=== PATIENT | male | born 1955 | race Caucasian/White ===

== ENCOUNTER → 2018-10-15 10:37 | Outpatient (CLI) | payer MEDICAID ==
--- NOTE | ~2018-10-15 | ST ---
PATIENT:SHANICE PATEL MEDICAL RECORD: [id number] SEX: M LOCATION:[facility] ORDER #: ADMISSION DATE: 10/15/18 AGE OF PATIENT: 63 REFERRING PHYSICIAN: INTERPRETING PHYSICIAN: CHRISTELLE BROWN MD DATE OF SERVICE: 10/15/2018 PROCEDURE: Nuclear stress test. INDICATION: Angina, abnormal ECG, hypertension, shortness of breath, diabetes. DESCRIPTION: The patient was exercised on standard Lexiscan protocol with 27 mCi of sestamibi injected at peak stress. Rest images were done previously with 9 mCi. FINDINGS: Gated SPECT reveals a preserved ejection fraction at 62% with good wall motion and thickening and brightening throughout all segments. SPECT imaging Cardiolite was used as myocardial fusion agent. There is reversibility inferiorly that includes the basal, mid and apical inferior segments. The degree of reversibility is moderate. The amount of myocardial involved is moderate. OVERALL IMPRESSION: 1. This is an abnormal nuclear stress test with reversible changes inferiorly. 2. Gated SPECT reveals preserved ejection fraction of greater than 60%. In this patient with ongoing symptomatology, the current scan does suggest the presence of hemodynamically significant coronary artery disease. We would proceed with coronary angiography as followup study. TRANSINT:[id number] Voice Confirmation ID: [id number] DOCUMENT ID: [id number] CHRISTELLE BROWN MD CC: [id number] DICTATION DATE: 10/16/18 1614 MARKETING SUPPORT SPECIALIST: 10/17/18 0935 DEP CLI 10/15/18 [facility] [address] [place] [address]
== END | disposition home or self-care (01) ==
LOC: D.HCCARDIO 10:37
PROVIDERS: ATTEND Internal Medicine Interventional Cardiology
DX: I20.9 Angina pectoris, unspecified (principal); E11.9 Type 2 diabetes mellitus without complications; I48.91 Unspecified atrial fibrillation; I10 Essential (primary) hypertension; R06.09 Other forms of dyspnea; E78.5 Hyperlipidemia, unspecified

== ENCOUNTER 2018-11-26 10:26 | Outpatient (CLI) | payer MEDICAID ==
--- NOTE | ~2018-11-26 | HEMODYNAMI ---
PATIENT:SHANICE PATEL MEDICAL RECORD: [id number] : 57 LOCATION:BLANE ADMISSION DATE: 11/26/18 Generatedon:11/26/201813:29 Patient name: SHANICE PATEL Patient #: [id number] SSN: : 1955 Date of study: 11/26/2018 Page: Of Hemodynamic Procedure Report Patient Data Patient Demographics Procedure consent was obtained First Name: SHANICE Gender: Male Last Name: AMANDA : 1955 Patient #: [id number] Age: 63 year(s) Race: Unknown Additional ID: [id number] Contact details [address]: [address] [place] [address] State: [place] City: [place] Zip code: [address] Past Medical History Allergies Allergen Reaction Date Comments Reported Other allergy 11/26/2018 PCN Admission Admission Data Admission Date: 11/26/2018 Admission Time: 10:26 Lab Results Lab Result Date: 11/26/2018 Lab Result Time: 10:50 Biochemistry Name Units Result Min Max BUN mg/dl 23 --(----)-* 7 18 Creatinine mg/dl 0.8 --(-*--)-- 0.6 1.3 CBC Name Units Result Min Max Hematocrit % 39.2 -*(----)-- 42 54 Hemoglobin g/dl 13.1 -*(----)-- 13.5 17.5 Procedure Procedure Types Cath Procedure Diagnostic Procedure LHC LH w/Coronaries PCI Procedure Coronary Stent Coronary Stent Initial Peripheral Cath Diagnostic Procedure Coach Wirer Peripheral Procedures Njxau-Yurucvt-Mxx-Off Procedure Description Procedure Date Procedure Date: 11/26/2018 Procedure Start Time: 13:05 Procedure End Time: 13:28 Procedure Staff Name Function Martin Sanford MD Performing Physician Vania Nelson RT Monitor Sri Banuelos RT Scrub Tarun Anna RN Nurse Procedure Data Cath Procedure Fluoroscopy Diagnostic fluoroscopy Total fluoroscopy Time: 4.1 time: 4.1 min min Diagnostic fluoroscopy Total fluoroscopy dose: dose: 1214 mGy 1214 mGy Contrast Material Contrast Material Type Amount (ml) Isovue 300 146 Entry Location Entry Primary Successful Side Size Upsize Upsize Entry Closure Succes sful Closure Location (Fr) 1 (Fr) 2 (Fr) Remarks Device Remarks Femoral Right 5 Fr 6 Fr Exoseal artery Short Estimated blood loss: 5 ml Diagnostic catheters Device Type Used For End Catheter Placement MULTIPACK JL 4.0 5Fr Left Coronary catheter Angiography MULTIPACK 3DRC 5Fr Right Coronary catheter Angiography MULTIPACK Pigtail 5 Fr LV Angiography catheter Procedure Complications No complications Procedure Medications Medication Administration Route Dosage 0.9% NaCl I.V. 100 ml/hr Oxygen etCO2 Nasal cannula 2 l/min Heparin Flush Bag added to field 2 bags (1000units/500ml NS) Lidocaine 2% added to field 20 Versed I.V. 1 mg Fentanyl I.V. 50 mcg Versed I.V. 0.5 mg Fentanyl I.V. 25 mcg Heparin Bolus I.V. 5000 units Integrilin (Bolus I.V. 10.2 ml 2mg/ml) Integrilin (Bolus wasted 9.8 ml 2mg/ml) Plavix P.O. 600 mg Hemodynamics Rest HGB: 13.1 (g/dl) Heart Rate: 60 (bpm) Pressure Samples Time Site Value (mmHg) Purpose Heart Use Rate(bpm) 13:10 LV 111/-4,7 Snapshot 75 13:10 AO 143/81(107) Pullback 73 Gradients Valve Time Site Site 2 Mean SEP/DFP Peak To Heart Use 1 (mmHg) (sec/min) Peak Rate (mmHg) (bpm) Aortic 13:10 LV AO 42 47 73 143/81(107) Calculations Valve P-P Mean Valve Index Valve Source Name Gradient Area Flow (cm2) Aortic 42 42 Snapshots Pre Cath Intra NCS Post Cath Vital Signs Time Heart Resp SPO2 etCO2 NIBP (mmHg) Rhythm Pain Sedation Rate (ipm) (%) (mmHg) Status Level (bpm) 13:01:04 68 16 99 34.1 168/101(128) NSR 0 (11) 10(A) , No pain 13:05:14 60 15 98 40.8 155/96(118) NSR 0 (11) 10(A) , No pain 13:09:28 68 17 98 40.8 151/89(115) NSR 0 (11) 10(A) , No pain 13:13:48 51 15 98 41.6 147/89(109) NSR 0 (11) 9(A) , No pain 13:18:04 65 15 98 25.2 148/89(113) NSR 0 (11) 9(A) , No pain 13:22:16 71 20 97 24.4 140/89(109) NSR 0 (11) 10(A) , No pain 13:26:30 49 11 99 24.4 157/92(115) NSR 0 (11) 10(A) , No pain Medications Time Medication Route Dose Verified Delivered Reason Notes Effectiveness by by 13:00:25 0.9% NaCl I.V. 100 Tarun Tarun Per physician ml/hr Wilfrido Anna RN RN 13:00:37 Oxygen etCO2 2 Tarun Tarun for low 02 sats Nasal l/min Wilfrido Anna cannula RN RN 13:00:48 Heparin Flush added 2 Tarun Tarun used for Bag to bags Wilfrido Anna procedure (1000units/500ml RN RN NS) 13:00:58 Lidocaine 2% added 20ml Tarun Tarun for local to vial Wilfrido Anna anesthetic RN RN 13:04:47 Versed I.V. 1 mg Tarun Tarun for sedation Wilfrido Anna RN RN 13:04:57 Fentanyl I.V. 50 Tarun Tarun for sedation mcg Wilfrido Anna RN RN 13:06:42 Versed I.V. 0.5 Tarun Tarun for sedation mg Wilfrido Anna RN RN 13:06:48 Fentanyl I.V. 25 Tarun Tarun for sedation mcg Wilfrido Anna RN RN 13:18:20 Heparin Bolus I.V. 5000 Tarun Tarun for units Wilfrido Anna anticoagulation RN RN 13:18:39 Integrilin I.V. 10.2 Tarun Tarun for (Bolus 2mg/ml) ml Wilfrido Anna antiplatelet RN RN therapy 13:18:53 Integrilin wasted 9.8 Tarun Tarun to sharp's (Bolus 2mg/ml) ml Wilfrido Anna RN RN 13:28:27 Plavix P.O. 600 Tarun Tarun for mg Wilfrido Anna antiplatelet RN RN therapy Procedure Log Time Note 12:45:53 Diagnostic Cath Status : Elective 12:46:17 Sri Banuelos RT(R) sent for patient. Start room use. 12:46:18 Time tracking: Regular hours (M-F 7:00 - 5:00) 12:46:25 Plan of Care:Hemodynamics will remain stable., Cardiac rhythm will remain stable., Comfort level will be maintained., Respiratory function will remain adequate., Patient/ family verbilizes understanding of procedure., Procedure tolerated without complication., Recovers from procedure without complications.. 12:51:44 Patient received from Pre/Post Procedure Room to CCL 1 Alert and oriented. Tansferred to table in Supine position. 12:51:45 Warm blankets applied, and brian hugger turned on for patient comfort. 12:51:45 Correct patient and procedure confirmed by team. 12:51:47 Signed procedure consent form obtained from patient. 12:51:48 ECG and BP/O2 sat monitors applied to patient. 12:52:59 Pre-procedure instructions explained to patient. 12:53:00 Pre-op teaching completed and patient verbalized understanding. 12:53:01 Family in waiting room. 12:53:04 Patient NPO since Breakfast. 12:54:06 Patient allergic to Other allergyPCN 12:54:17 Is the patient allergic to Iodine/contrast media? No. 12:54:44 Patient diabetic? Yes. 12:54:44 If diabetic: On Metformin? Yes 12:54:46 If on Metformin: Last Dose? 11/26/2018 12:54:51 Is patient on blood thinner?No 12:54:54 Previous problem with sedation/anesthesia? No ? 12:54:55 Snore? Yes 12:54:56 Sleep apnea? Yes 12:54:57 Deviated septum? No 12:54:57 Opens mouth fully? Yes 12:54:58 Sticks out tongue? Yes 12:55:02 Airway obstruction? Yes COPD 12:55:06 Dentures? Yes IN TIGHT 12:55:13 Patient pain scale 0/10 ?. 12:55:22 IV patent on arrival in left forearm with 0.9% NaCl at [facility]. 12:55:46 Lab Result : BUN 23 mg/dl 12:55:46 Lab Result : Hemoglobin 13.1 g/dl 12::46 Lab Result : Creatinine 0.8 mg/dl 12::46 Lab Result : Hematocrit 39.2 % 12:55:48 Lab results completed and on chart. 12:55:51 Pre procedure: right dorsailis pedis pulse 2+ Normal; easily identifiable; not easily obliterated 12:55:54 Pre procedure: left dorsailis pedis pulse 2+ Normal; easily identifiable; not easily obliterated 12:55:57 Bilateral groins area was prepped with chlora-prep and draped in sterile fashion 12:55:58 Alarms reviewed by R. N. 12:55:58 Sharps counted by scrub and verified by R.N. 12:56:00 Use device set Femoral Dx 12:56:01 ACIST Syringe (97063) opened to sterile field. 12:56:01 Bag Decanter (2002S) opened to sterile field. 12:56:02 Medline Cath Pack ([id number]) opened to sterile field. 12:56:03 ACIST Hand Control (19570) opened to sterile field. 12:56:03 ACIST Manifold (80960) opened to sterile field. 12:56:04 Tegaderm 4 x 4 (1626W) opened to sterile field. 12:56:05 SHEATH 5FR Clare (BPO603) opened to sterile field. 12:56:06 DIAGNOSTIC Multipack 5Fr catheter set (CO3254) opened to sterile field. 12:56:06 DIAGNOSTIC WIRE .035 260cm J wire (163060) opened to sterile field. 12:59:56 Vital chart was started 12:59:59 Baseline sample Acquired. 13:00:25 0.9% NaCl 100 ml/hr I.V. was administered by Tarun Anna RN; Per physician; 13:00:37 Oxygen 2 l/min etCO2 Nasal cannula was administered by Tarun Anna RN; for low 02 sats; 13:00:48 Heparin Flush Bag (1000units/500ml NS) 2 bags added to field was administered by Tarun Anna RN; used for procedure; 13:00:58 Lidocaine 2% 20ml vial added to field was administered by Tarun Anna RN; for local anesthetic; 13:01:33 Physician arrived 13:01:34 --------ALL STOP TIME OUT------ 13:01:35 Final Timeout: patient, procedure, and site verified with staff and physician. All members of the team are in agreement. 13:01:38 Bilateral groins site verified by team. 13:01:41 Maximum allowable Isovue 300 dose 300ml. Physician notified. (300ml for normal creatinines. For patients with creatinine of 1.7 or higher multiply weight(kg) x 5 divided by creatinine.) 13:01:45 Fire Safety Assessment: A--An alcohol-based skin anteseptic being used preoperatively., C--Open oxygen or nitrous oxide is being used., D--An ESU, laser, or fiber-optic light is being used. 13:01:48 Physical assessment completed. ASA score P 2 - A patient with mild systemic disease as per Martin Sanford MD. 13:01:52 Sedation plan: IV Moderate Sedation Medication:Versed, Fentanyl 13:04:47 Versed 1 mg I.V. was administered by Tarun Anna RN; for sedation; 13::57 Fentanyl 50 mcg I.V. was administered by Tarun Anna RN; for sedation; ::57 Procedure started. 13::57 Full Disclosure recording started 13:05:25 Local anesthetic to right femoral artery with Lidocaine 2% by Martin Sanford MD.INITIAL ACCESS ONLY 13:06:36 A 5 Fr sheath was inserted into the Right Femoral artery 13:06:42 Versed 0.5 mg I.V. was administered by Tarun Anna RN; for sedation; 13:06:43 A MULTIPACK JL 4.0 5Fr catheter was advanced over the wire and used for Left Coronary Angiography. 13:06:48 Fentanyl 25 mcg I.V. was administered by Tarun Anna RN; for sedation; 13:07:01 LCA angiography performed. 13:07:07 Injector settings: Ml/sec: 3, Volume: 6, 13:08:09 Catheter removed. 13:08:45 A MULTIPACK 3DRC 5Fr catheter was advanced over the wire and used for Right Coronary Angiography. 13:09:06 RCA angiography performed. 13::09 Injector settings: Ml/sec: 3, Volume: 6, 13:09:20 Baseline sample Acquired. 13:09:44 Catheter removed. 13:09:51 A MULTIPACK Pigtail 5 Fr catheter was advanced over the wire and used for LV Angiography. 13:10:06 LV hemodynamics recorded. 13:10:07 LV gram done using PLASENCIA 13:10:10 Injector settings: Ml/sec: 5, Volume: 15, 13:10:18 EF : 50 % 13:11:10 Abdominal angiogram w/ runoff was performed. 13:12:52 Catheter removed. 13:13:28 Proceeding to intervention. 13:13:54 SHEATH 6FR Clare (YYY748) opened to sterile field. 13:13:55 INFLATOR Merit BasixCompak (OU8923) opened to sterile field. 13:13:55 WHISPER 300cm guide wire ([id number]) opened to sterile field. 13:16:41 GUIDE 6FR JL 4.0 catheter (EP1AI85) opened to sterile field. 13:16:54 Sheath upsized to a 6 Fr Short. 13:17:13 6 Fr JL 4 guide catheter was inserted over the wire 13:17:23 WHISPER wire advanced. 13:17:43 Wire advanced across lesion. 13:18:20 Heparin Bolus 5000 units I.V. was administered by Tarun Anna RN; for anticoagulation; 13:18:39 Integrilin (Bolus 2mg/ml) 10.2 ml I.V. was administered by Tarun Anna RN; for antiplatelet therapy; 13:18:53 Integrilin (Bolus 2mg/ml) 9.8 ml wasted was administered by Tarun Anna RN; to sharp's; 13:22:06 Place stent Inflation Number: 1 A ISMAEL OTW 3.0 x 18 stent ([id number]) was prepped and advanced across the Mid LAD. The stent was deployed at 14 TENISHA for 0:30 (min:sec). 13:22:45 Inflation number: 2 The stent balloon was then re-inflated across the Mid LAD to 6 TENISHA for 0:30 (min:sec). 13:25:32 Stent catheter was removed intact over wire. 13:25:32 Wire removed. 13:25:33 Guide catheter removed. 13:25:39 EXOSEAL 6Fr (EX600) opened to sterile field. 13:25:48 Sheath removed intact; hemostasis achieved with Exoseal to the Right Femoral artery. 13:25:50 Procedure ended.(Physican Out) 13:27:34 Fluoroscopy time 04.10 minutes. 13:27:38 Fluoroscopy dose: 1214 mGy 13:27:38 Flurop Dose total: 1214 13:27:50 Contrast amount:Isovue 300 146ml. 13:27:52 Sharps counted by scrub and verified by R.N. 13:27:54 Insertion/operative site no bleeding no hematoma. 13:27:56 Post-op/insertion site Right Femoral artery dressed using a 4 x 4 and Tegaderm. 13:27:59 Post right femoral artery:stable 13:28:01 Post Procedure Pulses reassessed and unchanged 13:28:03 Post procedure rhythm: unchanged. 13:28:06 Estimated blood loss: 5 ml 13:28:07 Post procedure instruction explained to patient.Patient verbalizes understanding. 13:28:08 Patient needs reinforcement of post procedure teaching. 13:28:27 Plavix 600 mg P.O. was administered by Tarun Anna RN; for antiplatelet therapy; 13:28:37 Procedure type changed to Cath procedure, Diagnostic procedure, LHC, LHC w/Coronaries, PCI procedure, Coronary Stent, Coronary Stent Initial, Peripheral Cath Diagnostic Procedure, Coach Wirer Peripheral Procedures, Ilmdm-Bfklsin-Xqt-Off 13::38 Procedure and supply charges have been captured, reviewed, submitted and are correct. 13:28:43 Procedure Complication : No complications 13:28:45 Vital chart was stopped 13:28:46 See physician's report for complete and final results. 13:28:48 Report given to Pre/Post Procedure Room. 13:28:51 Patient transfered to Pre/Post Procedure Room with Stretcher. 13:28:53 Procedure ended. 13:28:53 Full Disclosure recording stopped 13:29:04 ACC-PCI Only Patient was given prescriptions, or instructed by Martin Sanford MD to start/continue the following medications upon discharge: Plavix 13:29:05 End room use (Document Last) Intervention Summary Intervention Notes Time ActionType Lesion and Equipment Action# Pressure Duration Attributes Used 13:22:06 Place stent Mid LAD ISMAEL OTW 3.0 1 14 00:30 x 18 stent ([id number]) 13:22:45 Reinflate Mid LAD ISMAEL OTW 3.0 2 6 00:30 stent x 18 stent balloon ([id number]) Device Usage Item Name Manufacture Quantity Catalog Hospital Part Current Mini mal Lot# / Number Charge Number Stock Stock Serial# Code ACIST Syringe Acist 1 64966 078440 362455 220095 20 (29480) Medical Systems Inc Bag Decanter Microtek 1 2001S 462154 86520 912958 5 (2001S) Medical Inc. Medline Cath Medline 1 [id number] 441328 59025 677344 5 Pack ([id number]) ACIST Hand Acist 1 06189 170144 239291 757924 5 Control Medical (36860) Systems Inc ACIST Acist 1 91590 665313 032543 585881 5 Manifold Medical (10951) Systems Inc Tegaderm 4 x 3M 1 1626W 283470 242420 466349 5 4 (1626W) SHEATH 5FR Terumo 1 EML094 465894 739194 441113 5 Clare (EKB202) DIAGNOSTIC Cardinal 1 SH1520 408907 08402 497409 30 Multipack 5Fr Health catheter set (KE2856) DIAGNOSTIC St [place] 1 878219 414773 434100 047157 30 WIRE .035 260cm J wire (795704) MULTIPACK JL Cardinal 1 773548 5 4.0 5Fr Health catheter MULTIPACK Cardinal 1 602735 5 3DRC 5Fr Health catheter MULTIPACK Cardinal 1 512380 5 Pigtail 5 Fr Health catheter SHEATH 6FR Terumo 1 URI852 580161 321600 344977 40 Clare (WNL900) INFLATOR [facility] 1 GC1391 941287 344291 021176 15 [facility] BasixCompak (GJ0605) WHISPER 300cm Dickey 1 [id number] 119227 958629 751133 5 guide wire Vascular ([id number]) GUIDE 6FR JL Medtronic 1 [id number] 757251 55892 535997 1 4.0 catheter (LW6BW89) ISMAEL OTW 3.0 Medtronic 1 [id number] 518362 5041666 059718 5 [id number] x 18 stent ([id number]) EXOSEAL 6Fr Cardinal 1 EX600 722972 252832 820378 10 (EX600) Health Signature Audit [place] Stage Time Signature Unsigned Intra-Procedure 11/26/2018 Vania Nelson 1:29:47 PM RT(R) Signatures Monitor : Vania Nelson RT Signature : Date : Time : [address] [place] [address]
[2018-11-26] MEDS ORDERED: GLUCOPHAGE500 MG PO (10:42)
[2018-11-26] MEDS ORDERED: SINGULAIR10 MG PO (10:42)
[2018-11-26] MEDS ORDERED: XANAX1 MG PO (10:42)
[2018-11-26] MEDS ORDERED: MOBIC7.5 MG PO (10:43)
[2018-11-26 10:55] VITALS: BP 162/91; BMI 37.0
[2018-11-26 11:09] LABS: BASOPHILS 0 % (0-2); EOSINOPHILS 3.7 % (0-7); HEMATOCRIT 39.2 % (42.0-54.0); HEMOGLOBIN 13.1 g/dL (13.5-17.5); IMMATURE GRANULOCYTES 0.3 % (0-5); LYMPHOCYTES 19.9 % (15-50); MCH 28.9 pg (26.0-34.0); MCHC 33.4 g/dL (31.0-37.0); MCV 86.3 fL (80.0-100.0); MEAN PLATELET VOLUME 10.3 fL (7.4-10.4); MONOCYTES 6.4 % (2-11); NEUTROPHILS 69.7 % (40-80); PLATELET COUNT 186 10x3/uL (130-400); RBC 4.54 10x6/uL (4.20-6.10); RDW 13.7 % (11.5-14.5); WBC 5.9 10x3/uL (4.8-10.8)
[2018-11-26 11:18] LABS: CALC OSMOLALITY 283 mosm/kg (275-300); CALCIUM 8.9 mg/dL (8.5-10.1); CHLORIDE - SERUM 104 mmol/L (98-107); CREATININE - SERUM 0.8 mg/dL (0.6-1.3); GLUCOSE 162 mg/dL (74-106); POTASSIUM - SERUM 4.1 mmol/L (3.5-5.1); SODIUM 138 mmol/L (136-145); UREA NITROGEN 23 mg/dL (7-18); eGFR NON AFRICAN AMERICAN > 90 mL/min (90-120)
[2018-11-26] MEDS ORDERED: PLAVIX75 MG PO (13:38)
--- NOTE | 2018-11-26 13:55 | NUR ---
2L NC, NO RESP DISTRESS. RIGHT GROIN 6F EXOSEAL CDI, HEMATOMA NOTED TO SITE. FEMSTOP IN PALCE @ 116. NO C/O PAIN OR NAUSEA. VSS. CALL LIGHT WITHIN REACH.
--- NOTE | 2018-11-26 14:30 | NUR ---
C/O NAUSEA. ZOFRAN GIVEN PER ORDERS. SEE MAR. FEMSTOP PRESSURE DECREASED BY 25 WITH NO BLEEDING NOTED. VSS. WILL CONTINUE TO MONITOR.
--- NOTE | 2018-11-26 14:55 | NUR ---
FEMSTOP PRESSURE DECREASED BY 30 WITH NO BLEEDING NOTED. VSS. NO NEEDS VOICED. CALL LIGHT WITHIN REACH.
--- NOTE | 2018-11-26 15:18 | NUR ---
FEMSTOP PRESSURE DECREASED BY 30 WITH NO BLEEDING NOTED.
--- NOTE | 2018-11-26 15:38 | NUR ---
FEMSTOP PRESSURE DECREASED BY 30 WITH NO BLEEDING NOTED. VSS.
--- NOTE | 2018-11-26 15:55 | NUR ---
REMAINING FEMSTOP PRESSURE REMOVED AND DRESSING PLACED TO SITE WITH NO BLEEDING NOTED. VSS. WILL CONTINUE TO MONITOR.
--- NOTE | 2018-11-26 16:35 | NUR ---
HOB ELEVATED 30 DEGREES. RIGHT GROIN 6F EXOSEAL CDI, NO BLEEDING NOTED. SIPPING ON DRINK AND EATING SANDWICH WITH NO C/O NAUSEA. VSS. WILL CONTINUE TO MONITOR CLOSELY.
--- NOTE | 2018-11-26 17:08 | NUR ---
LEFT PIV D/C'D WITH CATHETER INTACT, BAND AID TO SITE. RIGHT GROIN 6F EXOSEAL CDI, NO BLEEDING NOTED. UP TO BEDSIDE TO GET DRESSED. AMBULATED TO RESTROOM TO VOID.
--- NOTE | 2018-11-26 17:20 | NUR ---
DISCHARGE INSTRUCTIONS ALONG WITH PLAVIX PRESCRIPTION GIVEN TO PT AND FAMILY. BOTH VERBALIZED UNDERSTANDING.
--- NOTE | 2018-11-26 17:30 | NUR ---
TAKEN OUT VIA WHEELCHAIR BY CATH STRIPER MACHINE. LEFT FACILITY WITH FAMILY AND ALL PERSONAL BELONGINGS.
--- NOTE | 2018-12-01 08:49 | OP ---
PATIENT NAME: SHANICE PATEL MEDICAL RECORD: [id number] :57 LOCATION:D.CAT ADMISSION DATE: SURGEON: DARRYL SHULTZ MD DATE OF OPERATION: 11/26/2018 PROCEDURE: Catheterization, AFRO, PTCA stent to the right femoral artery approach. CATHETERS: A 5-Solomon Islander sheath, 5/4 left and right Yael, 5/4 pig. The procedure was well tolerated. The patient returned to the mcarthur, sheath removed and adequate hemostasis. ExoSeal device was placed. FINDINGS: Left ventriculography in 30-degree PLASENCIA view. Normal wall motion and normal systolic function. CORONARY ANATOMY: LEFT MAIN: Left main is free of disease. LAD: Mid portion has about 90% stenosis after trifurcation of 2 diagonals in the LAD. CIRCUMFLEX: Has ostial stenosis of 80%. RIGHT CORONARY ARTERY: Dominant artery, gives rise to PDA, free of disease. The pigtail catheter was drawn to the level of the renal arteries and AFRO was performed. Abdominal aorta shows no evidence of dissection. No evidence of aneurysm. RIGHT ARTERIAL SYSTEM: Right iliacs, common internal and external iliac are tortuous, but without significant disease. RIGHT FEMORAL SYSTEM: The right deep common femoral shows no significant disease. The distal superficial femoral has some wall disease, no more than 20% with good 2-vessel runoff distally. LEFT ILIAC: Left iliac, including common internal and external again tortuous, but with no significant stenosis. The superficial system deep common, no significant disease. Again, some wall disease in the mid portion with calcification, but no flow obstructive stenosis, good 2-vessel runoff distally. IMPRESSION AND PLAN: Intervention LAD momentarily. DESCRIPTION OF PROCEDURE: A 5-Solomon Islander sheath was exchanged for a 6-Sol[place] Islander sheath. A JL4 guiding catheter provided good guide catheter support followed by 300 cm Whisper wire was placed across the tightly occluded LAD down his portion of the vessel. Stent deployed was a 3.0 x 18 mm [place] drug-eluting stent up to 14 atmospheres for 45 seconds. Final angiography shows excellent resolution 80% to 90% diffuse stenosis, no significant residual. YANA flow was 3 throughout the procedure. Sheath was closed with ExoSeal device. TRANSINT:[id number] Voice Confirmation ID: [id number] DOCUMENT ID: [id number] OPERATIVE REPORT [id number] SHANICE PATEL DARRYL SHULTZ MD at 0849 CC: [id number] DICTATION DATE: 11/26/18 1333 MANUFACTURING SPECIALIST: 11/26/18 190 DEP CLI 11/26/18 [place] [id number] [place] [address]
== END 2018-11-26 17:30 | disposition home or self-care (01) ==
LOC: D.CATH 10:26
PROVIDERS: ATTEND Internal Medicine Interventional Cardiology
DX: I25.119 Atherosclerotic heart disease of native coronary artery with unspecified angina pectoris (principal); Z01.812 Encounter for preprocedural laboratory examination

== ENCOUNTER 2018-12-17 11:57 | Outpatient (CLI) | payer MEDICAID ==
[~2018-12-17] VITALS: Ht 176.5 cm; Wt 113.6 kg
--- NOTE | ~2018-12-17 | HEMODYNAMI ---
PATIENT:SHANICE PATEL MEDICAL RECORD: [id number] : 57 LOCATION:BLANE ADMISSION DATE: 12/17/18 Generatedon:12/17/201815:38 Patient name: SHANICE PATEL Patient #: [id number] SSN: : 1955 Date of study: 12/17/2018 Page: Of Hemodynamic Procedure Report Patient Data Patient Demographics Procedure consent was obtained First Name: SHANICE Gender: Male Last Name: AMANDA : 1955 [facility] Initial: NURA Age: 63 year(s) Patient #: [id number] Race: Unknown Additional ID: [id number] Contact details Address: [address] [place] [address] State: [place] City: [place] Zip code: [address] Past Medical History Allergies Allergen Reaction Date Comments Reported Other allergy 11/26/2018 PCN Penicillins 12/17/2018 Admission Admission Data Admission Date: 12/17/2018 Admission Time: 11:57 Admit Source: Other Procedure Procedure Types Cath Procedure PCI Procedure Coronary Stent Coronary Stent Initial Procedure Description Procedure Date Procedure Date: 12/17/2018 Procedure Start Time: 15:22 Procedure End Time: 15:37 Procedure Staff Name Function Martin Sanford MD Performing Physician Darby Reaves RT Monitor Nguyễn Hayden RT Scrub Lenny Berg RN Nurse Procedure Data Cath Procedure Fluoroscopy Diagnostic fluoroscopy Total fluoroscopy Time: 2.7 time: 2.7 min min Diagnostic fluoroscopy Total fluoroscopy dose: 254 dose: 254 mGy mGy Contrast Material Contrast Material Type Amount (ml) Isovue 300 64 Entry Location Entry Primary Successful Side Size Upsize Upsize Entry Closure Forrester ccessful Closure Location (Fr) 1 (Fr) 2 (Fr) Remarks Device Remarks Radial Right 6 Fr Mechanical artery Short Compression Estimated blood loss: 5 ml Procedure Complications No complications Procedure Medications Medication Administration Route Dosage Oxygen etCO2 Nasal cannula 2 l/min Lidocaine 2% added to field 20 Heparin Flush Bag added to field 2 bags (1000units/500ml NS) 0.9% NaCl I.V. 100 ml/hr Radial Cocktail added to field 1 syringe (Verapamil 2mg/Nitro 400mcg/Heparin 1500units) Versed I.V. 2 mg Fentanyl I.V. 100 mcg Versed I.V. 2 mg Fentanyl I.V. 50 mcg Heparin Bolus I.V. 4000 units Hemodynamics Rest Heart Rate: 75 (bpm) Snapshots Pre Cath Intra NCS Post Cath Vital Signs Time Heart Resp SPO2 etCO2 NIBP (mmHg) Rhythm Pain Sedation Rate (ipm) (%) (mmHg) Status Level (bpm) 15:02:48 75 14 97 0 149/98(120) NSR 0 (11) 10(A) , No pain 15:07:04 58 26 98 0 155/95(142) NSR 0 (11) 10(A) , No pain 15:11:20 76 22 98 0 154/102(128) NSR 0 (11) 10(A) , No pain 15:15:36 76 19 97 0 140/94(126) NSR 0 (11) 10(A) , No pain 15:19:46 75 16 98 0 137/89(109) NSR 0 (11) 10(A) , No pain 15:23:54 75 12 97 0 137/94(109) NSR 0 (11) 9(A) , No pain 15:28:03 78 11 95 0 127/82(106) NSR 0 (11) 9(A) , No pain 15:32:09 75 12 94 0 138/89(116) NSR 0 (11) 9(A) , No pain 15:36:19 72 12 95 0 138/86(113) NSR 0 (11) 9(A) , No pain Medications Time Medication Route Dose Verified Delivered Reason Not es Effectiveness by by 15:10:59 Oxygen etCO2 2 l/min Martin Galvez used for Nasal St Jonathon Berg RN procedure cannula 15:11:07 Lidocaine 2% added 20ml Martin Salazar for local to vial [facility] anesthetic field MD ESPINOZA 15:11:14 Heparin Flush added 2 bags Martin Salazar used for Bag to [facility] procedure (1000units/500ml field MD ESPINOZA NS) 15:11:23 0.9% NaCl I.V. 100 Martin Lalaie Per physician ml/hr St Jonathon Berg RN, MD 15:11:36 Radial Cocktail added 1 Martin Salazar for (Verapamil to syringe [place] [facility] vasodilation 2mg/Nitro field MD ESPINOZA 400mcg/Heparin 1500units) 15:19:17 Versed I.V. 2 mg Martin Reevesie for sedation St Jonathon Berg RN, MD 15:19:27 Fentanyl I.V. 100 mcg Martin Reevesie for sedation St Jonathon Berg RN, MD 15:27:22 Versed I.V. 2 mg Martin Reevesie for sedation St Jonathon Berg RN, MD 15:27:26 Fentanyl I.V. 50 mcg Martin Galvez for sedation St Jonathon Berg RN, MD 15:28:24 Heparin Bolus I.V. 4000 Martin Galvez for bhanu ified units St Jonathon Berg RN anticoagulation with dr MD bello Procedure Log Time Note 14:23:50 Informed consent obtained and on chart 14:23:53 Admit Source: Other 14:24:06 Diagnostic Cath status Elective 14:24:07 Time tracking: Regular hours (M-F 7:00 - 5:00) 14:24:11 Plan of Care:Hemodynamics will remain stable., Cardiac rhythm will remain stable., Comfort level will be maintained., Respiratory function will remain adequate., Patient/ family verbilizes understanding of procedure., Procedure tolerated without complication., Recovers from procedure without complications.. 14:24:21 H&P Date Dictated: 12/17/2018 Within 30 days and on chart., H&P Addendum completed by physician on day of procedure. (MUST COMPLETE FOR ALL OUTPATIENTS). 14:54:21 Lenny Breg RN sent for patient. Start room use. 14:56:01 Patient received from Pre/Post Procedure Room to CCL 3 Alert and oriented. Tansferred to table in Supine position. 14:56:02 Warm blankets applied, and brian hugger turned on for patient comfort. 14:56:02 Correct patient and procedure confirmed by team. 14:56:03 ECG and BP/O2 sat monitors applied to patient. 14:56:04 Full Disclosure recording started 15:01:44 Vital chart was started 15:01:56 Baseline sample Acquired. 15:02:04 Rhythm: sinus rhythm 15:02:16 Pre-procedure instructions explained to patient. 15:02:28 Pre-op teaching completed and patient verbalized understanding. 15:02:31 Family in waiting room. 15:02:34 Patient NPO since Midnight. 15:03:04 Patient allergic to Penicillins 15:03:10 Is the patient allergic to Iodine/contrast media? No. 15:03:15 Is patient on blood thinner?Yes 15:03:21 ACC The patient was administered the following blood thiners within the last 24 hours: ACCPlavix 15:03:40 ----Pre-sedation anethsthesia assessment.---- 15:03:46 Patient diabetic? Yes. 15:03:48 If diabetic: On Metformin? Yes 15:03:56 If on Metformin: Last Dose? 12/15/2018 15:04:11 Previous problem with sedation/anesthesia? No ? 15:04:16 Snore? Yes 15:04:18 Sleep apnea? No 15:04:21 Deviated septum? No 15:04:24 Opens mouth fully? Yes 15:04:27 Sticks out tongue? Yes 15:04:49 Airway obstruction? Yes copd 15:04:56 Dentures? No ? 15:08:34 Pre procedure: right dorsailis pedis pulse 2+ Normal; easily identifiable; not easily obliterated 15:08:35 Modified Wesly's test Ulnar < 7 seconds 15:08:37 Patient pain scale 0/10 ?. 15:08:46 IV patent on arrival in left forearm with 0.9% NaCl at O. 15:08:48 Lab results completed and on chart. 15:08:52 Right Radial & Right Groin area was prepped with chlora-prep and draped in sterile fashion 15:08:53 Alarms reviewed by R. N. 15:08:53 Sharps counted by scrub and verified by R.N. 15:08:59 Use device set CATH PACK 15:09:05 Use device set [place] PCI 15:09:09 ACIST Syringe (61390) opened to sterile field. 15:09:09 ACIST Hand Control (18198) opened to sterile field. 15:09:10 ACIST Manifold (08718) opened to sterile field. 15:09:10 Medline Cath Pack ([id number]) opened to sterile field. 15:09:11 Bag Decanter (2001S) opened to sterile field. 15:09:11 DIAGNOSTIC WIRE .035 260cm J wire (041004) opened to sterile field. 15:09:12 INFLATOR Merit Kiara (RW8924) opened to sterile field. 15:09:13 WHISPER 300cm guide wire ([id number]) opened to sterile field. 15:10:59 Oxygen 2 l/min etCO2 Nasal cannula was administered by Lenny Berg RN; used for procedure; 15:11:07 Lidocaine 2% 20ml vial added to field was administered by Martin Sanford MD; for local anesthetic; 15:11:14 Heparin Flush Bag (1000units/500ml NS) 2 bags added to field was administered by Martin Sanford MD; used for procedure; 15:11:23 0.9% NaCl 100 ml/hr I.V. was administered by Lenny Berg RN; Per physician; 15:11:36 Radial Cocktail (Verapamil 2mg/Nitro 400mcg/Heparin 1500units) 1 syringe added to field was administered by Martin Sanford MD; for vasodilation; 15:14:52 Zero performed for pressure channel P1 15:18:41 Final Timeout: patient, procedure, and site verified with staff and physician. All members of the team are in agreement. 15:18:43 Right Radial site verified by team. 15:18:46 Maximum allowable Isovue 300 dose 300ml. Physician notified. (300ml for normal creatinines. For patients with creatinine of 1.7 or higher multiply weight(kg) x 5 divided by creatinine.) 15:18:49 Fire Safety Assessment: A--An alcohol-based skin anteseptic being used preoperatively., C--Open oxygen or nitrous oxide is being used., D--An ESU, laser, or fiber-optic light is being used. 15:18:52 Physical assessment completed. ASA score P 2 - A patient with mild systemic disease as per Martin Sanford MD. 15:18:56 Sedation plan: IV Moderate Sedation Medication:Versed, Fentanyl 15:19:17 Versed 2 mg I.V. was administered by Lenny Berg RN; for sedation; 15:19:27 Fentanyl 100 mcg I.V. was administered by Lenny Berg RN; for sedation; 15:22:17 Procedure started. 15:22:27 Local anesthetic to right radial artery with Lidocaine 2% by Martin Sanford MD.INITIAL ACCESS ONLY 15:24:08 A 6 Fr Short sheath was inserted into the Right Radial artery 15::19 6 Fr XBLAD 4.0 guide catheter was inserted over the wire 15::56 Guide Catheter removed. unable to cannulate vessel. 15::08 GUIDE 6FR XBLAD 3.5 catheter ([id number]) opened to sterile field. 15:27:09 GUIDE 6FR XBLAD 4.0 catheter ([id number]) opened to sterile field. 15:: Versed 2 mg I.V. was administered by Lenny Berg RN; for sedation; 15::22 6 Fr XBLAD 3.5 guide catheter was inserted over the wire 15:: Fentanyl 50 mcg I.V. was administered by Lenny Berg RN; for sedation; 15::24 Heparin Bolus 4000 units I.V. was administered by Lenny Berg RN; for anticoagulation; verified with dr bello 15:29:23 WHISPER wire advanced. 15:32:06 Place stent Inflation Number: 1 A ISMAEL OTW 3.5 x 12 stent ([id number]) was prepped and advanced across the Prox CX. The stent was deployed at 14 TENISHA for 0:26 (min:sec). 15:32:22 Stent catheter was removed intact over wire. 15::24 Wire removed. 15:32:24 Guide catheter removed. 15:32:33 Sheath removed intact; hemostasis achieved with Mechanical Compression to the Right Radial artery. 15:32:34 Procedure ended.(Physican Out) 15:32:45 Fluoroscopy time 02.70 minutes. 15:32:50 Flurop Dose total: 254 15:32:50 Fluoroscopy dose: 254 mGy 15:32:53 Contrast amount:Isovue 300 64ml. 15:32:55 Sharps counted by scrub and verified by R.N. 15:32:59 TR band inflated with 12cc of air. 15:33:23 TR BAND Large ([id number]) opened to sterile field. 15:33:26 Insertion/operative site no bleeding no hematoma. 15:33:31 Post right radial artery:stable, clean and dry 15:33:33 Post Procedure Pulses reassessed and unchanged 15:33:35 Post-procedure physical assessment completed. ASA score P 2 - A patient with mild systemic disease as per Martin Sanford MD. 15:33:36 Post procedure rhythm: unchanged. 15:33:39 Estimated blood loss: 5 ml 15:33:40 Post procedure instruction explained to patient.Patient verbalizes understanding. 15:33:41 Patient needs reinforcement of post procedure teaching. 15:34:13 Procedure Complication : No complications 15:34:15 See physician's report for complete and final results. 15:34:48 SHEATH 6FR Slender (80-1060) opened to sterile field. 15:35:16 Procedure and supply charges have been captured, reviewed, submitted and are correct. 15:37:32 Vital chart was stopped 15:37:38 Report given to Pre/Post Procedure Room. 15:37:41 Patient transfered to Pre/Post Procedure Room with Stretcher. 15:37:44 Procedure ended. 15:37:44 Full Disclosure recording stopped 15:37:48 End room use (Document Last) Intervention Summary Intervention Notes Time ActionType Lesion and Equipment Action# Pressure Duration Attributes Used 15:32:06 Place stent Prox CX ISMAEL OTW 3.5 1 14 00:26 x 12 stent ([id number]) Device Usage Item Name Manufacture Quantity Catalog Hospital Part Current Mini mal Lot# / Number Charge Number Stock Stock Serial# Code ACIST Syringe Acist 1 69024 601159 911657 656610 20 (76712) Medical Systems Inc ACIST Hand Acist 1 26038 791556 370728 552646 5 Control Medical (67616) Systems Inc ACIST Acist 1 91110 852275 822673 234170 5 Manifold Medical (46395) Systems Inc Medline Cath Medline 1 [id number] 941050 78155 525867 5 Pack ([id number]) Bag Decanter Microtek 1 2001S 699529 13930 218930 5 (2001S) Medical Inc. DIAGNOSTIC St [place] 1 888087 612217 043308 854352 30 WIRE .035 260cm J wire (117016) INFLATOR Merit 1 TP8975 729008 428996 980161 15 Merit Medical BasixCompak (GI0951) WHISPER 300cm Dickey 1 [id number] 002649 766361 366447 5 guide wire Vascular ([id number]) GUIDE 6FR Cardinal 1 [id number] 262461 938893 800382 10 XBLAD 3.5 Health catheter (18653255) GUIDE 6FR Cardinal 1 09134947 500381 920296 225422 3 XBLAD 4.0 Health catheter (84821877) ISMAEL OTW 3.5 Medtronic 1 [id number] 224015 7679318 117067 5 8422300 x 12 stent ([id number]) TR BAND Large Terumo 1 [id number] 273976 860268 303317 40 ([id number]) SHEATH 6FR Terumo 1 [id number] 936399 115615 446558 5 Slender (80-1374) Signature Audit [place] Stage Time Signature Unsigned Intra-Procedure 12/17/2018 Darby 3:38:09 PM Counts RT(R) Signatures Monitor : Darby Signature : Counts RT Date : Time : [facility] [address] [place] [address]
--- NOTE | ~2018-12-17 | OP ---
PATIENT NAME: SHANICE PATEL MEDICAL RECORD: [id number] :57 LOCATION:D.CAT ADMISSION DATE: SURGEON: DARRYL SHULTZ MD DATE OF OPERATION: 12/17/2018 STENT REPORT DESCRIPTION OF PROCEDURE: Right radial was cannulated with a radial sheath. An EBU 3.5 guiding catheter provided good guide catheter support followed by 3.5 x 12 Ronny drug-eluting stent up to 14 atmospheres across the 80% stenosis in circ. This showed excellent resolution of 80% stenosis with no significant residual. No encroachment of LAD lumen. YANA flow was 3 throughout the procedure. Heparin was used during the case. The patient was previously on Plavix. Sheath was closed with TR band. TRANSINT:[id number] Voice Confirmation ID: [id number] DOCUMENT ID: [id number] DARRYL SHULTZ MD CC: [id number] DICTATION DATE: 12/17/18 1538 EMERGENCY MEDICINE PHYSICIAN ASSISTANT: 12/17/18 1827 REG [facility] [address] [place] [id number]
--- NOTE | ~2018-12-17 | HP ---
PATIENT: SHANICE PATEL MEDICAL RECORD: [id number] ACCOUNT: [id number] LOCATION:BLANE : 57 ADMISSION DATE: 12/17/18 PCP: NEO HARDEN MD HISTORY AND PHYSICAL EXAMINATION HISTORY OF PRESENT ILLNESS: The patient is referred from Dr. Harden for possible claudication and coronary artery disease, underwent a recent intervention on 11/20/2018 for LAD disease. He has residual disease of his circumflex, being brought in for intervention of this vessel. PAST MEDICAL HISTORY: Includes: 1. History of diabetes mellitus. 2. Hyperlipidemia. 3. Hypertension. 4. Coronary artery disease as described above. ALLERGIES: PENICILLIN. MEDICATIONS: Include Plavix 75 every day, aspirin 81 daily, metformin 500 mg b.i.d. PHYSICAL EXAMINATION: GENERAL: Pleasant gentleman in no acute distress. HEENT: Normocephalic, atraumatic. NECK: No bruits noted. HEART: Regular. LUNGS: Good air excursion. ABDOMEN: Soft, nontender. EXTREMITIES: Pulses 2+ with no edema. IMPRESSION: Intervention of the circumflex today. TRANSINT:[id number] Voice Confirmation ID: [id number] DOCUMENT ID: [id number] DARRYL SHULTZ MD CC: [id number] DICTATION DATE: 12/17/18 1117 FAMILY PRESERVATION WORKER: 12/17/18 1240 REG [facility] [address] [place] [id number]
[~2018-12-17 11:57] MED LIST: GLUCOPHAGE500 MG PO; MOBIC7.5 MG PO; PLAVIX75 MG PO; SINGULAIR10 MG PO; XANAX1 MG PO
[2018-12-17] MEDS ORDERED: BAYER CHEWABLE81 MG PO (12:37)
[2018-12-17 12:43] VITALS: BP 140/85; Ht 176.5 cm; Wt 113.6 kg
[2018-12-17 12:55] LABS: BASOPHILS 0.1 % (0-2); EOSINOPHILS 2.6 % (0-7); HEMATOCRIT 38.7 % (42.0-54.0); HEMOGLOBIN 13.1 g/dL (13.5-17.5); IMMATURE GRANULOCYTES 0.3 % (0-5); LYMPHOCYTES 13.5 % (15-50); MCH 29.1 pg (26.0-34.0); MCHC 33.9 g/dL (31.0-37.0); MEAN PLATELET VOLUME 10.4 fL (7.4-10.4); MONOCYTES 6.2 % (2-11); NEUTROPHILS 77.3 % (40-80); PLATELET COUNT 204 10x3/uL (130-400); RDW 13.9 % (11.5-14.5); WBC 6.9 10x3/uL (4.8-10.8)
[2018-12-17 13:16] LABS: CALC OSMOLALITY 280 mosm/kg (275-300); CALCIUM 9.3 mg/dL (8.5-10.1); CARBON DIOXIDE 25.6 mmol/L (21.0-32.0); CHLORIDE - SERUM 103 mmol/L (98-107); CREATININE - SERUM 0.8 mg/dL (0.6-1.3); GLUCOSE 145 mg/dL (74-106); POTASSIUM - SERUM 4.2 mmol/L (3.5-5.1); SODIUM 137 mmol/L (136-145); UREA NITROGEN 23 mg/dL (7-18); eGFR NON AFRICAN AMERICAN > 90 mL/min (90-120)
--- NOTE | 2018-12-17 15:50 | NUR ---
PATIENT ARRIVED TO CATH RECOVERY ROOM 4 VIA STRETCHER. RIGHT TR BAND IN PLACE, PATIENT PLACED ON 2L NC. NO C/O PAIN, NUMBNESS, OR TINGLING. WILL CONTINUE TO MONITOR.
--- NOTE | 2018-12-17 16:05 | NUR ---
PATIENT RESTING, VSS ON ROOM AIR. RIGHT TR BAND IN PLACE, NO S/S OF BLEEDING OR HEMATOMA. FAMILY PRESENT AT BEDSIDE.
--- NOTE | 2018-12-17 16:35 | NUR ---
PATIENT AWAKE, SITTING UP IN BED EATING SANDWICH. RIGHT TR BAND WITH WRIST IMMOBILILZER IN PLACE, NO S/S OF BLEEDING OR HEMATOMA. NO C/O PAIN, NUMBNESS, OR TINGLING. VSS ON ROOM AIR.
--- NOTE | 2018-12-17 17:05 | NUR ---
PATIENT RESTING, VSS ON ROOM AIR. RIGHT TR BAND IN PLACE, NO S/S OF BLEEDING OR HEMATOMA. NO C/O PAIN, NUMBNESS, OR TINGLING. WILL CONTINUE TO MONITOR.
--- NOTE | 2018-12-17 17:35 | NUR ---
PATIENT RESTING, VSS ON ROOM AIR. RIGHT TR BAND IN PLACE, NO S/S OF BLEEDING OR HEMATOMA. NO C/O PAIN. NO N/V.
--- NOTE | 2018-12-17 18:05 | NUR ---
HEAD OF BED AT 30 DEGREES. RIGHT TR BAND IN PLACE, NO S/S OF BLEEDING OR HEMATOMA. NO C/O PAIN, NUMBNESS, OR TINGLING. VSS ON ROOM AIR. FAMILY PRESENT AT BEDSIDE.
--- NOTE | 2018-12-17 18:35 | NUR ---
BEGIN AIR REMOVAL PROTOCOL FOR TR BAND, 3CC OF AIR REMOVED. NO S/S OF BLEEDING OR HEMATOMA. NO C/O PAIN, NUMBNESS, OR TINGLING. VSS ON ROOM AIR. NO SHORTNESS OF BREATH. NO N/V. FAMILY PRESENT AT BEDSIDE.
--- NOTE | 2018-12-17 18:59 | NUR ---
IV REMOVED. REMAINING AIR REMOVED FROM TR BAND, NO S/S OF BLEEDING OR HEMATOMA. NO C/O PAIN, NUMBNESS, OR TINGLING. PATIENT GETTING DRESSED AT THIS TIME.
--- NOTE | 2018-12-17 19:15 | NUR ---
PATIENT VOIDED WITHOUT DIFFICULTY. RIGHT RADIAL DRESSING IN PLACE IS CDI, NO S/S OF BLEEDING OR HEMATOMA. WRITTEN AND VERBAL EDUCATION REGARDING DISCHARGE INSTRUCTIONS AND MEDICATION COMPLIANCE GIVEN TO PATIENT, PATIENT VOICES UNDERSTANDING.
--- NOTE | 2018-12-17 19:20 | NUR ---
PATIENT TRANSPORTED VIA WHEELCHAIR TO CAR WITH FAMILY DRIVING, ALL BELONGINGS WITH PATIENT.
== END 2018-12-17 19:21 ==
LOC: D.CATH 11:57
PROVIDERS: ATTEND Internal Medicine Interventional Cardiology
DX: I25.119 Atherosclerotic heart disease of native coronary artery with unspecified angina pectoris (principal); Z95.5 Presence of coronary angioplasty implant and graft; E11.9 Type 2 diabetes mellitus without complications; E78.5 Hyperlipidemia, unspecified; I10 Essential (primary) hypertension; Z79.02 Long term (current) use of antithrombotics/antiplatelets; Z79.84 Long term (current) use of oral hypoglycemic drugs; Z79.82 Long term (current) use of aspirin; Z88.0 Allergy status to penicillin; Z01.812 Encounter for preprocedural laboratory examination

== ENCOUNTER → 2020-01-11 12:27 | Outpatient (CLI) | payer BC ==
[2018-12-17 12:43] VITALS: BMI 36.4
[~2020-01-11 12:27] MED LIST changes: +BAYER CHEWABLE81 MG PO
--- NOTE | 2020-01-12 09:31 | EC ---
PATIENT:SHANICE PATEL DATE OF SERVICE: 01/11/20 SEX: M MEDICAL RECORD: [id number] DATE OF : 57 LOCATION:D.[facility] AGE OF PATIENT: 64 ADMISSION DATE: 01/11/20 REFERRING PHYSICIAN: INTERPRETING PHYSICIAN: DARRYL SHULTZ MD ECHOCARDIOGRAM REPORT ECHO CHARGES 4 ECHO COMPLETE Date: 01/11/20 CLINICAL DIAGNOSIS: CAD HX OF MILD AND MR ECHOCARDIOGRAPHIC MEASUREMENTS (adult normal given) AC root (d.<3.7cm) 3.7 cm LV Septum d (<1.2 cm> 1.2 cm Valve Excursion 1.6 cm LV Septum (systole) 1.4 cm Left Atria (s.<4.0cm> 3.4 cm LVPW d(<1.2cm) 1.3 cm RV (d.<2.3cm) 4.7 cm LVPW (sytole) 1.4 cm LV diastole(<5.6CM) 5.5 cm MV E-F(>70mm/sec) cm LV systole 3.9 cm LVOT Diameter 1.5 cm MV exc.(>10mm) 1.3 cm Est.ejection fraction (50-75%) % DOPPLER: LVIT cm/sec A 83.0 cm/sec E 60.0 cm/sec LA cm/sec RVSP 26 mmHg LVOT 116 cm/sec AOP1/2T m/s Asc. Ao 187 cm/sec RVOT 98 cm/sec RA cm/sec PA 160 cm/sec AV Gradient Peak 14.05mmHg AV Mean 7.43 mmHg AV Area 1.3 cm MV Gradient Peak 3.44 mmHg MV Mean 1.65 mmHg MV Area cm COMMENTS: Residential Green Building Designer: 2 DEVONTE PEACOCK Shovel Loader Operator: 3 Dr. Wilson TAPE# PACS Pericardial Effusion N DATE OF SERVICE: 01/11/2020 Adequate 2D echo, color flow imaging, spectral Doppler, and M-Mode. Borderline LVH. LV internal dimension is normal. Wall motion is normal. EF is greater than or equal to 55%. Aortic valve is tricuspid. No evidence of stenosis by Doppler interrogation. Left atrium is normal at 3.4 cm. Mitral valve shows no prolapse. Trace MR. Right-sided chambers are grossly normal. Trivial TR. ECHOCARDIOGRAM REPORT [id number] SHANICE PATEL TRANSINT:[id number] Voice Confirmation ID: [id number] DOCUMENT ID: [id number] DARRYL SHULTZ MD at 0931 CC: [id number] DICTATION DATE: 01/11/20 1528 TECHNICIAN AUTOMATIC: 01/12/20 0147 DEP CLI 01/11/20 [place] [id number] [place] [id number]
== END | disposition home or self-care (01) ==
LOC: D.HCCECHO 12:27
PROVIDERS: ATTEND Internal Medicine Interventional Cardiology
DX: I25.10 Atherosclerotic heart disease of native coronary artery without angina pectoris (principal)

== ENCOUNTER 2020-03-07 11:35 | Outpatient (CLI) | payer MEDICAID ==
[~2020-03-07] VITALS: Ht 175.3 cm; Wt 114.5 kg
--- NOTE | ~2020-03-07 | OP ---
PATIENT NAME: SHANICE PATEL MEDICAL RECORD: [id number] :57 LOCATION:D.CAT ADMISSION DATE: SURGEON: DARRYL SHULTZ MD DATE OF OPERATION: 03/07/2020 PROCEDURE: Left heart catheterization, selective coronary angiography, right radial approach. CATHETERS: Radial sheath, [place] catheter. The procedure was well tolerated. The patient returned to [facility]. Sheath was removed. TR band was placed. FINDINGS: Left ventriculography in 30-degree PLASENCIA view: Normal wall motion and normal systolic function. CORONARY ANATOMY: LEFT MAIN: Left main is free of disease. LAD: Has a proximal stenosis of the stent approximately 80%. This involves a first diagonal. Again, 80% stenosis in its proximal portion. This is a large diagonal distally. CIRCUMFLEX: Has about a 70% to 80% stenosis proximal stent in the ostium. There is a moderate sized true ramus branch that is basically subtotaled in its proximal portion. RIGHT CORONARY ARTERY: Has an ostial stenosis of 80%. IMPRESSION: Multivessel coronary artery disease. Stenosis in the LAD is proximal and new since his previous intervention. Given underlying history of diabetes, probably best served with coronary artery bypass grafting. Dr. Perry is consulted for this purpose. TRANSINT:[id number] Voice Confirmation ID: [id number] DOCUMENT ID: [id number] DARRYL SHULTZ MD CC: [id number] DICTATION DATE: 03/07/20 1412 PODOPEDIATRICIAN: 03/07/202200 DEP CLI 03/07/20 [place] [id number] [place] [address]
--- NOTE | ~2020-03-07 | HEMODYNAMI ---
PATIENT:SHANICE PATEL MEDICAL RECORD: [id number] : 57 LOCATION:[facility] ADMISSION DATE: 03/07/20 Generatedon:03/07/202014:09 Patient name: SHANICE PATEL Patient #: [id number] SSN: [id number] : 1955 Date of study: 03/07/2020 Page: Of Hemodynamic Procedure Report Patient Data Patient Demographics Procedure consent was obtained First Name: SHANICE Gender: Male Last Name: AMANDA : 1955 Middle Initial: NURA Age: 64 year(s) Patient #: [id number] Race: SSN: [id number] Additional ID: [id number] Contact details [address]: [address] [place] [address] State: [place] City: [place] Zip code: [address] Past Medical History Allergies Allergen Reaction Date Comments Reported Other allergy 11/26/2018 PCN Penicillins 12/17/2018 Other allergy 03/07/2020 PCN Admission Admission Data Admission Date: 03/07/2020 Admission Time: 11:35 Arrival Date: 03/07/2020 Arrival Time: 0:00 Insurance Payor: Private health insurance Height (in.): 68.9 BSA: 2.28 (m2) Height (cm.): 175 BMI: 37.55 (kg/m2) Weight (lbs.): 253.53 Weight (kg.): 115 Lab Results Lab Result Date: 03/07/2020 Lab Result Time: 0:00 Biochemistry Name Units Result Min Max BUN mg/dl 31 --(----)-* 7 18 Creatinine mg/dl 0.8 --(-*--)-- 0.6 1.3 eGFR ml/min 90 --(*---)-- 90 120 NONAFRICAN CBC Name Units Result Min Max Hematocrit % 41.4 -*(----)-- 42 54 Hemoglobin g/dl 13.3 -*(----)-- 13.5 17.5 Procedure Procedure Types Cath Procedure Diagnostic Procedure [facility] w/Coronaries Sedation Charges Moderate Sedation up to 15 minutes Procedure Description Procedure Date Procedure Date: 03/07/2020 Procedure Start Time: 13:54 Procedure End Time: 14:07 Procedure Staff Name Function Martin Sanford MD Performing Physician Brigitte Waite RT Monitor Lenny Berg RN Nurse Sri Banuelos RT Scrub Procedure Data Cath Procedure Fluoroscopy Diagnostic fluoroscopy Total fluoroscopy Time: 1 time: 1 min min Diagnostic fluoroscopy Total fluoroscopy dose: 971 dose: 971 mGy mGy Contrast Material Contrast Material Type Amount (ml) Isovue 300 67 Entry Location Entry Primary Successful Side Size Upsize Upsize Entry Closure Forrester ccessful Closure Location (Fr) 1 (Fr) 2 (Fr) Remarks Device Remarks Radial Right 6 Fr Mechanical artery Short Compression Estimated blood loss: 5 ml Diagnostic catheters Device Type Used For End Catheter Placement DIAGNOSTIC [place] 110cm 5 Procedure Fr catheter ([id number]) Procedure Complications No complications Procedure Medications Medication Administration Route Dosage Oxygen etCO2 Nasal cannula 2 l/min Lidocaine 2% added to field 20 Heparin Flush Bag added to field 2 bags (1000units/500ml NS) 0.9% NaCl I.V. 100 ml/hr Versed I.V. 1 mg Fentanyl I.V. 50 mcg Radial Cocktail I.A. 1 syringe (Verapamil 2mg/Nitro 400mcg/Heparin 1500units) Hemodynamics Rest BSA: 2.28 (m2) HGB: 13.3 (g/dl) O2 Consumption: Estimated: 271.48 (ml/min) O2 Co nsumption indexed: Estimated:119.07 (ml/min/m) Heart Rate: 76 (bpm) Pressure Samples Time Site Value (mmHg) Purpose Heart Use Rate(bpm) 13:58 LV 122/11,21 Snapshot 89 13:58 AO 105/76(89) Pullback 79 13:58 LV 115/13,16 Pullback 79 Gradients Valve Time Site 1 Site 2 Mean SEP/DFP Peak To Heart Use (mmHg) (sec/min) Peak Rate (mmHg) (bpm) Aortic 13:58 LV AO 10 79 115/13,16 105/76(89) Calculations Valve P-P Mean Valve Index Valve Source Name Gradient Area Flow (cm2) Aortic 10 10 Snapshots Pre Cath Intra NCS Post Cath Vital Signs Time Heart Resp SPO2 etCO2 NIBP (mmHg) Rhythm Pain Sedation Rate (ipm) (%) (mmHg) Status Level (bpm) 13:42:26 73 20 97 0 154/99(131) NSR 0 (11) 10(A) , No pain 13:46:23 75 20 96 0 154/98(120) NSR 0 (11) 10(A) , No pain 13:50:23 75 22 97 0 155/97(127) NSR 0 (11) 10(A) , No pain 13:54:20 78 27 93 0 147/95(114) NSR 0 (11) 10(A) , No pain 13:58:24 75 20 93 0 94/67(83) NSR 0 (11) 9(A) , No pain 14:02:51 75 20 94 0 141/80(103) NSR 0 (11) 9(A) , No pain 14:06:46 75 22 93 0 144/90(113) NSR 0 (11) 10(A) , No pain Medications Time Medication Route Dose Verified Delivered Reason Notes Effectiveness by by 13:49:52 Oxygen etCO2 2 l/min Martin Galvez used for Nasal St Jonathon Berg RN procedure cannula 13:50:00 Lidocaine 2% added 20ml Martin Salazar for local to vial [facility] anesthetic field MD ESPINOZA 13:50:06 Heparin Flush added 2 bags Martin Salazar used for Bag to [facility] procedure (1000units/500ml field MD ESPINOZA NS) 13:50:14 0.9% NaCl I.V. 100 Martin Galvez Per ml/hr St Jonathon Berg RN physician 13:52:30 Versed I.V. 1 mg Martin Galvez for sedation St Jonathon Berg RN, MD 13:52:35 Fentanyl I.V. 50 mcg Martin Galvez for sedation St Jonathon Berg RN, MD 13:57:41 Radial Cocktail I.A. 1 Martin Salazar for (Verapamil syringe [facility] vasodilation 2mg/Nitro MD ESPINOZA 400mcg/Heparin 1500units) Procedure Log Time Note 12:21:18 Informed consent obtained and on chart 12:24:57 Arrival Date: 03/07/2020 12:00:00 AM 12:25:08 Procedure Status Elective Heart Cath (OP). 12:25:12 Time tracking: Regular hours (M-F 7:00 - 5:00) 12:35:26 Patient allergic to Other allergyPCN 13:10:18 Lab Result : eGFR NONAFRICAN 90 ml/min 13:10:18 Lab Result : Creatinine 0.8 mg/dl 13:10:18 Lab Result : BUN 31 mg/dl 13:10:18 Lab Result : Hematocrit 41.4 % 13:10:18 Lab Result : Hemoglobin 13.3 g/dl 13:11:38 Patient Height : 68.9 inches 13:11:42 Patient Weight : 253.53 lbs 13:11:55 Insurance Payor : Private health insurance 13:12:13 Lab results completed and on chart. 13:12:20 Stress Test: no; N/A ? 13:19:24 Sri Banuelos RT(R) sent for patient. Start room use. 13:19:33 Plan of Care:Hemodynamics will remain stable., Cardiac rhythm will remain stable., Comfort level will be maintained., Respiratory function will remain adequate., Patient/ family verbilizes understanding of procedure., Procedure tolerated without complication., Recovers from procedure without complications.. 13:28:17 Patient received from Pre/Post Procedure Room to CCL 2 Alert and oriented. Tansferred to table in Supine position. 13:28:19 Warm blankets applied, and brian hugger turned on for patient comfort. 13:28:20 Correct patient and procedure confirmed by team. 13:28:21 ECG and BP/O2 sat monitors applied to patient. 13:41:34 Vital chart was started 13:41:36 Baseline sample Acquired. 13:41:41 Rhythm: sinus rhythm 13:41:42 Full Disclosure recording started 13:41:48 H&P Date Dictated: 03/07/2020 H&P Addendum completed by physician on day of procedure. (MUST COMPLETE FOR ALL OUTPATIENTS), New H&P dictated by physician.. 13:41:50 Pre-procedure instructions explained to patient. 13:41:51 Pre-op teaching completed and patient verbalized understanding. 13:41:53 Family in patients room. 13:41:56 Patient NPO since Midnight. 13:41:58 Is the patient allergic to Iodine/contrast media? No. 13:42:01 Was the patient premedicated? Yes 13:42:15 Is patient on blood thinner?No 13:43:03 Patient diabetic? Yes. 13:43:39 If on Metformin: Last Dose? 03/05/2020 13:43:41 ----Pre-sedation anethsthesia assessment.---- 13:43:45 Previous problem with sedation/anesthesia? No ? 13:43:48 Snore? Yes 13:43:50 Sleep apnea? Yes 13:43:53 Deviated septum? Unknown 13:43:56 Opens mouth fully? Yes 13:44:17 Sticks out tongue? Yes 13:44:33 Airway obstruction? Yes sleep apnea/wears cpap 13:44:39 Dentures? No ? 13:44:54 Pre procedure: right dorsailis pedis pulse 2+ Normal; easily identifiable; not easily obliterated 13:45:03 IV patent on arrival in left forearm with 0.9% NaCl at [facility]. 13:45:15 Right Radial & Right Groin area was prepped with chlora-prep and draped in sterile fashion 13:45:18 Alarms reviewed by R. N. 13:45:19 Sharps counted by scrub and verified by R.N. 13:45:24 Use device set Radial Dx or PCI 13:45:26 ACIST Syringe (26550) opened to sterile field. 13:45:27 Medline Cath Pack ([id number]) opened to sterile field. 13:45:27 Bag Decanter (2002S) opened to sterile field. 13:45:28 ACIST Hand Control (93633) opened to sterile field. 13:45:29 ACIST Manifold (89190) opened to sterile field. 13:45:30 MBrace Wrist Support ([id number]) opened to sterile field. 13:45:32 EMERALD Guide Wire (150-802) opened to sterile field. 13:45:33 SHEATH 6FR RAIN ([id number]) opened to sterile field. 13:49:52 Oxygen 2 l/min etCO2 Nasal cannula was administered by Lenny Berg RN; used for procedure; Verbal order read back and verified. 13:50:00 Lidocaine 2% 20ml vial added to field was administered by Martin Sanford MD; for local anesthetic; Verbal order read back and verified. 13:50:06 Heparin Flush Bag (1000units/500ml NS) 2 bags added to field was administered by Martin Sanford MD; used for procedure; Verbal order read back and verified. 13:50:14 0.9% NaCl 100 ml/hr I.V. was administered by Lenny Berg RN; Per physician; Verbal order read back and verified. 13:50:20 Risk of Mortality: 0.1 13:50:23 Risk of blood transfusion: 0.1 13:50:27 Risk of JUDI: 0.1 13:50:34 Physician arrived 13:50:34 --------ALL STOP TIME OUT------ 13:50:35 Final Timeout: patient, procedure, and site verified with staff and physician. All members of the team are in agreement. 13:50:38 Right Radial & Right Groin site verified by team. 13:50:43 Fire Safety Assessment: A--An alcohol-based skin anteseptic being used preoperatively., C--Open oxygen or nitrous oxide is being used., D--An ESU, laser, or fiber-optic light is being used. 13:50:47 Physical assessment completed. ASA score P 2 - A patient with mild systemic disease as per Martin Sanford MD. 13:50:53 1) 90+ Normal kidney functon but urine findings or structural abnormalities or genetic trait point to kidney disease. 13:50:58 Maximum allowable contrast dose (3.7 X eGFR X 0.75)250 ml. 13:51:16 Sedation plan: IV Moderate Sedation Medication:Versed, Fentanyl 13:52:30 Versed 1 mg I.V. was administered by Lenny Berg RN; for sedation; Verbal order read back and verified. 13:52:35 Fentanyl 50 mcg I.V. was administered by Lenny Berg RN; for sedation; Verbal order read back and verified. 13:52:43 Zero performed for pressure channel P1 13:54:20 Procedure started. 13:54:44 Local anesthetic to right radial artery with Lidocaine 2% by Martin Sanford MD.INITIAL ACCESS ONLY 13:57:35 A 6 Fr Short sheath was inserted into the Right Radial artery 13:57:41 Radial Cocktail (Verapamil 2mg/Nitro 400mcg/Heparin 1500units) 1 syringe I.A. was administered by Martin Sanford MD; for vasodilation; Verbal order read back and verified. 13:57:48 A DIAGNOSTIC [place] 110cm 5 Fr catheter ([id number]) was advanced over the wire and used for Procedure. 13:58:17 LV gram done using PLASENCIA 13:58:36 Injector settings: Ml/sec: 5, Volume: 15, 13:58:44 EF : 55 % 13:58:48 LV hemodynamics recorded. 13:58:51 LCA angiography performed. 13:58:55 Injector settings: Ml/sec: 3, Volume: 6, 14:01:57 RCA angiography performed. 14:02:09 Injector settings: Ml/sec: 3, Volume: 6, 14:03:13 Catheter removed. 14:03:18 ZEPHYR REGULAR TR BAND (134078) opened to sterile field. 14:03:37 Sheath removed intact; hemostasis achieved with Mechanical Compression to the Right Radial artery. 14:04:21 Contrast amount:Isovue 300 67ml. 14:04:23 Procedure ended.(Physican Out) 14:04:28 Fluoroscopy time 01.00 minutes. 14:04:55 Flurop Dose total: 971 14:04:55 Fluoroscopy dose: 971 mGy 14:05:05 Dose Area Product 62399 mGy/cm. 14:05:09 Maximum allowable dose exceeded? No. 14:05:10 Sharps counted by scrub and verified by R.N. 14:05:15 [place] band inflated with 10cc of air. 14:05:18 Insertion/operative site no bleeding no hematoma. 14:05:25 Post right radial artery:stable 14:05:31 Post-procedure physical assessment completed. ASA score P 2 - A patient with mild systemic disease as per Martin Sanford MD. 14:05:36 Post procedure rhythm: unchanged. 14:05:41 Estimated blood loss: 5 ml 14:05:43 Post procedure instruction explained to patient.Patient verbalizes understanding. 14:05:44 Patient needs reinforcement of post procedure teaching. 14:06:30 Procedure type changed to Cath procedure, Diagnostic procedure, LHC, [facility] w/Coronaries, Sedation Charges, Moderate Sedation up to 15 minutes 14:06:32 Procedure and supply charges have been captured, reviewed, submitted and are correct. 14:06:43 Procedure Complication : No complications 14:06:48 Vital chart was stopped 14:06:53 [facility] Findings: MVD- CABG consult 14:06:55 Operative report dictated upon procedure completion. 14:06:56 See physician's report for complete and final results. 14:06:59 Report given to Pre/Post Procedure Room. 14:07:06 Patient transfered to Pre/Post Procedure Room with Stretcher. 14:07:09 Procedure ended. 14:07:09 Full Disclosure recording stopped 14:07:19 End room use (Document Last) Device Usage Item Name Manufacture Quantity Catalog Hospital Part Current Minima l Lot# / Number Charge Number Stock Stock Serial# Code ACIST Acist 1 62559 037475 [id number] 20 Syringe Medical (76633) Systems Inc Medline Medline 1 [id number] [id number] 95691 224084 5 Cath Pack ([id number]) Bag Microtek 1 2001S 965247 64516 893048 5 Decanter Medical Inc. () ACIST Hand Acist 1 67592 329929 544836 631615 5 Control Medical (85356) Systems Inc ACIST Acist 1 89560 285704 363614 827717 5 Manifold Medical (59929) Systems Inc MBrace Advanced 1 140-0250-00 261578 95984 429307 5 Wrist Vascular Support Dynamics ([id number]) EMERALD Cardinal 1 502-455 057559 377766 593726 5 Guide Wire Health (690-048) SHEATH 6FR Cardinal 1 [id number] 982437 1756366 016074 5 [facility] (7247520) DIAGNOSTIC Terumo 1 40-5893 838432 602513 902168 5 [place] 110cm 5 Fr catheter (753960) ZEPHYR Cardinal 1 593165 933730 [id number] [id number] 5 REGULAR TR Health BAND (634174) Signature Audit [place] Stage Time Signature Unsigned Intra-Procedure 03/07/2020 Brigitte 2:08:51 PM Ravindra RT(R) (CV) Intra-Procedure 03/07/2020 Lenny Berg RN 2:09:20 PM Intra-Procedure 03/07/2020 Martin Langley 2:09:48 PM Jonathon ESPINOZA Signatures Performing Physician : Signature : Martin Sanford MD Date : Time : Monitor : Brigitte Signature : Nannemann RT Date : Time : Nurse : Buffie Berg RN Signature : Date : Time : [address] [place] [address]
[2020-03-07] MEDS ORDERED: ADVAIR 250-501 EAC1 INH (12:04)
[2020-03-07] MEDS ORDERED: VOLTAREN75 MG PO (12:06)
[2020-03-07 12:20] VITALS: BP 152/90; BMI 37.3
[2020-03-07 12:34] LABS: BASOPHILS 0.2 % (0-2); EOSINOPHILS 4.5 % (0-7); HEMATOCRIT 41.4 % (42.0-54.0); HEMOGLOBIN 13.3 g/dL (13.5-17.5); IMMATURE GRANULOCYTES 0.5 % (0-5); MCH 28.5 pg (26.0-34.0); MCHC 32.1 g/dL (31.0-37.0); MCV 88.7 fL (80.0-100.0); MONOCYTES 7.8 % (2-11); PLATELET COUNT 202 10x3/uL (130-400); RBC 4.67 10x6/uL (4.20-6.10); RDW 12.9 % (11.5-14.5); WBC 6.2 10x3/uL (4.8-10.8)
[2020-03-07 12:51] LABS: ALT (SGPT) 30 U/L (10-68); CALC OSMOLALITY 285 mosm/kg (275-300); CALCIUM 9.3 mg/dL (8.5-10.1); CHLORIDE - SERUM 102 mmol/L (98-107); CHOLESTEROL, TOTAL 210 mg/dL (0-200); CREATININE - SERUM 0.8 mg/dL (0.6-1.3); HDL CHOLESTEROL 52 mg/dL (32-96); LDL CHOLESTEROL 136 mg/dL (0-100); LDL-HDL RATIO 2.6 ratio (1.5-3.5); POTASSIUM - SERUM 3.9 mmol/L (3.5-5.1); SODIUM 137 mmol/L (136-145); TRIGLYCERIDE 111 mg/dL (30-200); UREA NITROGEN 31 mg/dL (7-18); eGFR NON AFRICAN AMERICAN > 90 mL/min (90-120)
[2020-03-07 12:55] LABS: GLUCOSE 193 mg/dL (74-106)
--- NOTE | 2020-03-07 14:17 | NUR ---
PT ARRIVED BY STRETCHER. PLACED ON MONITORS. ASSESSMENT COMPLETED. VSS AT THIS TIME. CALL LIGHT WITHIN REACH. NO NEEDS AT THIS TIME.
--- NOTE | 2020-03-07 14:31 | NUR ---
PT RESTING COMFORTABLY. VSS. RIGHT WRIST Z BAND IN PLACE. NO BLEEDING/HEMATOMA NOTED. CALL LIGHT WITHIN REACH.
--- NOTE | 2020-03-07 15:00 | NUR ---
RIGHT WRIST Z BAND IN PLACE. 2cc OF AIR REMOVED FROM Z BAND. NO BLEEDING/HEMATOMA NOTED. CALL LIGHT WITHIN REACH.
--- NOTE | 2020-03-07 15:15 | NUR ---
3cc OF AIR REMOVED FROM Z BAND. NO BLEEDING/HEMATOMA NOTED. CALL LIGHT WITHIN REACH. VSS AT THIS TIME.
--- NOTE | 2020-03-07 15:25 | NUR ---
DR. YODER AT BEDSIDE SPEAKING WITH PT ABOUT CABG SURGERY AND HIS OPTIONS.
--- NOTE | 2020-03-07 15:30 | NUR ---
5cc OF AIR REMOVED FROM Z BAND. NO BLEEDING/HEMATOMA NOTED. CALL LIGHT WITHIN REACH. VSS AT THIS TIME.
[2020-03-07] MEDS ORDERED: PLAVIX75 MG PO (15:38)
[2020-03-07 15:41] VITALS: Ht 175.3 cm; Wt 114.5 kg
--- NOTE | 2020-03-07 15:45 | NUR ---
Z BAND REMOVED AND DRESSING APPLIED. NO BLEEDING/HEMATOMA NOTED. VSS. PIV D/C'D WITH CATH TIP INTACT. TOLERATED WELL. PT INSTRUCTED TO GET UP AND DRESSED AT THIS TIME. NO ASSISTANCE NEEDED. CALL LIGHT WITHIN REACH.
--- NOTE | 2020-03-07 16:00 | NUR ---
DISCUSSED DISCHARGE INSTRUCTIONS WITH PT. HE VOICED UNDERSTANDING.
--- NOTE | 2020-03-07 16:15 | NUR ---
PT AMBULATED TO RESTROOM. VOIDED WITHOUT DIFFICULTY. STEADY GAIT NOTED. PT TAKEN DOWN TO VEHICLE BY WHEELCHAIR. NO S/S OF DISTRESS NOTED. ALL BELONGINGS AND PAPERWORK IN HAND. RIGHT WRIST DRESSING C/D/I. NO S/S OF HEMATOMA NOTED.
== END 2020-03-07 16:15 | disposition home or self-care (01) ==
LOC: D.CATH 11:35
PROVIDERS: ATTEND Internal Medicine Interventional Cardiology
DX: I25.10 Atherosclerotic heart disease of native coronary artery without angina pectoris (principal); E11.9 Type 2 diabetes mellitus without complications; Z79.84 Long term (current) use of oral hypoglycemic drugs; R06.00 Dyspnea, unspecified; R53.83 Other fatigue; I10 Essential (primary) hypertension